=== PATIENT | male | born 1995 | race Caucasian/White ===

== ENCOUNTER 2020-05-28 18:19 | Emergency (ER) | payer SELFPAY ==
[~2020-05-28] VITALS: Ht 182.9 cm; Wt 79.7 kg
[2020-05-28] MEDS ORDERED: PROPOFOL 100 ML IV ONE (18:23)
[2020-05-28 18:49] LABS: BASOPHILS # (AUTO) 0.02 x10^3/uL (0-0.1); BASOPHILS % (AUTO) 0 % (0-1); EOSINOPHILS # (AUTO) 0.01 x10^3/uL (0-0.4); EOSINOPHILS % (AUTO) 0 % (1-7); LYMPHOCYTES # (AUTO) 0.73 x10^3/uL (1-3.4); LYMPHOCYTES % (AUTO) 6 % (22-44); MD NO; MEAN CORPUSCULAR HEMOGLOBIN 31.7 pg (27.5-34.5); MEAN CORPUSCULAR HGB CONC 33.4 g/dL (33.2-36.2); MEAN PLATELET VOLUME 8.8 fL (7.4-10.4); MONOCYTES # (AUTO) 0.31 x10^3/uL (0.2-0.8); MONOCYTES % (AUTO) 3 % (2-9); NEUTROPHILS # (AUTO) 11.72 x10^3/uL (1.8-6.8); NEUTROPHILS % (AUTO) 92 % (42-75); PLATELET COUNT 176 x10^3/uL (130-400); RED BLOOD COUNT 5.26 x10^6/uL (4.38-5.82); RED CELL DISTRIBUTION WIDTH 13.1 % (9.4-14.8)
--- NOTE | 2020-05-28 18:53 | NUR ---
Patient to go to [facility] per neurosurg Dr. Borden. Accepted at [facility] ED by Dr. Simons. Accepting at [facility] center was Jessy. Set up through [facility] via [facility] center. [facility] has to find ground crew to transport patient as he requires sedation that paramedics can not run.
--- NOTE | 2020-05-28 18:54 | NUR ---
PT BIB FROM [place] BY FLIGHT. IT WAS REPORTED BY EMS THAT PATIENT WAS WITH FATHER TODAY DRIVING TO [place] AND SAW A FLASH OF LIGHT AND STARTED VOMITING. PT THEN LOST SPEECH AND WALKING FUNCTION. PT WAS TAKEN TO [facility]. HE WAS GIVEN KEPRRA, ATIVAN, VERSED, AND ZOFRAN. PT WAS ALSO GIVEN KETAMINE AND FENTNAYL BY EMS FOR INTUBATION. PT WAS INTUBATED BY FLIGHT WITH A 7.5 ET TUBE. PT ARRIVE INTUBATED. PT HAS BEEN SEEN BY DR PRETTY. RT IN ROOM. PT ARRIVED WITH A [employer]WOOD CATHETER. VS STABLE. RETAIL ROUTE SUPERVISOR ON. NSR NOTED. WILL CONTINUE TO MONITOR.
[2020-05-28 19:00] LABS: ALANINE AMINOTRANSFERASE 27 U/L (12-78); ALBUMIN 4.1 g/dL (3.4-5.0); ANION GAP 5 mmol/L (5-15); CALCIUM 8.7 mg/dL (8.5-10.1); CHLORIDE 109 mmol/L (98-107); CREATININE 0.81 mg/dL (0.7-1.3)
[2020-05-28 19:02] LABS: ALKALINE PHOSPHATASE 74 U/L (45-117); BILIRUBIN,TOTAL 0.4 mg/dL (0.2-1.0); TOTAL PROTEIN 7.8 g/dL (6.4-8.2)
--- NOTE | 2020-05-28 19:17 | NUR ---
PT BEING SENT TO [facility] PER DR HODGE. SJ HOBSON RN AT [facility] ED HAS BEEN GIVEN REPORT. CARE FLIGHT HAS BEEN GIVEN REPORT. FAMILY AT BEDSIDE. CARE FLIGHT HERE TO TRASNFER PATIENT.
[2020-05-28 19:18] VITALS: BP 107/72
--- NOTE | 2020-05-28 19:22 | NUR ---
DR PRETTY HAS UPDATED FAMILY
[2020-05-28 19:25] LABS: INTERNATIONAL NORMALIZED RATIO 1.02 (0.93-1.1); PROTHROMBIN TIME 10.5 Seconds (9.6-11.5)
[2020-05-28] MEDS ORDERED: PROPOFOL 100 ML IV PRN (19:30)
== END 2020-05-29 00:14 | disposition home or self-care (01) ==
LOC: ED 19:13
DX: I60.8 Other nontraumatic subarachnoid hemorrhage (principal); R94.31 Abnormal electrocardiogram [ECG] [EKG]
CPT/HCPCS: 36600; 71045; 80053; 82803; 85025; 85610; 85730; 93005; 99291; J2704; 94002

== ENCOUNTER → 2020-10-05 | Outpatient (CLI) | payer BC | END | disposition home or self-care (01) | LOC: ROC 08:10 | PROVIDERS: ATTEND Radiology Radiation Oncology | DX: Q28.2 Arteriovenous malformation of cerebral vessels (principal) | CPT/HCPCS: 99214; G0463 ==

== ENCOUNTER 2020-10-26 08:21 | Outpatient (CLI) | payer BC, MEDICAID ==
[2020-10-26] MEDS ORDERED: GADOTERATE 10 MMOL/20 ML VIAL ONE (11:30)
== END 2020-10-26 23:59 | disposition home or self-care (01) ==
LOC: CFH 08:21
PROVIDERS: ATTEND Radiology Radiation Oncology
DX: Q28.2 Arteriovenous malformation of cerebral vessels (principal)
CPT/HCPCS: 70546; 70553; A9575